=== PATIENT | female | born 2000 | race Caucasian/White ===

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

== ENCOUNTER 2025-04-19 11:50 | Emergency (ER) | payer OTHER, SELFPAY ==
--- NOTE | ~2025-04-19 | XR_ITS ---
EXAMINATION: XR ankle RT min 3V DATE: 04/19/2025 12:21 INDICATION: Right ankle inversion injury with pain TECHNIQUE: Anteroposterior, oblique, mortise, and lateral views of the right ankle were obtained. COMPARISON: None. FINDINGS: Alignment is normal. Coronally oriented linear lucency consistent with nondisplaced fracture extendin g across the posterior malleolus. No other fractures identified. There is however soft tissue swellin g overlying the lateral malleolus which suggests associated anterior talofibular ligament sprain. Clara nt spaces are well maintained. No ankle joint effusion. IMPRESSION: 1. Nondisplaced coronally oriented fracture across the posterior malleolus of the distal tibia. Reviewed, dictated and finalized at location A. IMPRESSION: 1. Nondisplaced coronally oriented fracture across the posterior malleolus of t he distal tibia.
--- NOTE | 2025-04-19 11:51 | ED.LOWEXIN ---
HPI - Extremity Injury (Lower) General Chief Complaint: Extremity Injury, Lower Stated Complaint: ankle injury Time Seen by Provider: 04/19/25 12:08 Source: patient, RN notes reviewed and old records reviewed Mode of arrival: ambulatory Limitations: no limitations History of Present Illness HPI Narrative: 24-year-old female presents to the [facility] with complaints right ankle pain. Injury in 1st rolling of the ankle occurred yesterday. States she has taken ibuprofen. Onset (ago): day(s) (1) Treatments prior to arrival: NSAIDS Related Data Home Medications ?Medication ?Instructions ?Recorded ?Confirmed ?Last Taken ?Type norgestimate 0.25 mg-ethinyl tablet 04/19/25 Unknown History estradiol 0.035 mg tablet (Estarylla) Allergies Allergy/AdvReac Type Severity Reaction Status Date / Time No Known Allergies Allergy Verified 04/19/25 12:08 Review of Systems Review of Systems: All systems reviewed & are unremarkable except as noted in HPI and below Constitutional: Constitutional: Reports no additional constitutional complaints ENT: Reports system reviewed and no additional complaints, except as documented Cardiovascular: Cardiovascular: Reports no additional cardiovascular complaints, Denies chest pain and Denies dyspnea Respiratory: Respiratory: Reports no additional respiratory complaints, Denies chest congestion, Denies cough and Denies dyspnea Musculoskeletal: Musculoskeletal: Reports as per HPI Integumentary/Breasts: Skin/Breast: Reports system reviewed and no additional complaints, except as docu [facility] Surgical History Surgical History (Updated 09/05/20 @ 12:31 by Yojana Henry PA-C) History of tonsillectomy Social History Social History (Updated 09/05/20 @ 12:31 by Yojana Henry PA-C) Smoking status: Never smoker Substance use: never Gender identity (if verbalized by the patient): Female Comments At the time of my signature, I reviewed and agree with the nursing past medical, surgical, social, and family history. There is no relevant family history pertinent to the patient complaint. Exam Const: General: cooperative, healthy appearing, comfortable, no acute distress, well developed, alert and well nourished Nutritional Appearance: well nourished Orientation/consciousness: patient oriented x3 Limitations: no limitations HENMT: Head: normal to inspection Eyes: General: appearance normal, both eyes and all related structures Alignment and Position: alignment normal Neck: Neck: normal visual inspection, full ROM, no lymphadenopathy and no meningeal signs Chest: Chest palpation & inspection: normal inspection of the chest Resp: Effort & Inspection: normal respiratory effort and able to speak in complete sentences Cardio: Rate: regular rate Skin: General skin exam: normal color and no rashes or lesions noted Neuro: General: patient oriented x3, moves all extremities and no meningeal signs Cognition (Neuro): normal cognition Speech: normal speech Extrem: General: normal to inspection, full ROM, capillary refill normal and Limp noted Right lower extremity: ankle Details: tenderness (Lateral posterior), swelling (Lateral), normal ROM and ecchymosis; no abrasions, no lacerations, no crepitus and no penetrating wound and foot Details: normal capillary refill, toes with normal ROM, vascular exam Details: dorsalis pedis pulse present and normal capillary refill and motor-sensory exam Details: light-touch normal; no abrasion and no laceration Psych: Appearance: grossly normal and well kempt Mental Status: mental status grossly normal Speech and movement: Normal speech and movement present and Clear speech present Affect: normal affect Attitude: cooperative Course Course Level of Care: Express Care Visit Vital Signs Vital signs: Vital Signs Temperature 98.3 F 04/19/25 12:01 Pulse Rate 95 04/19/25 12:01 Respiratory Rate 18 04/19/25 12:01 Blood Pressure 131/84 04/19/25 12:01 Pulse Oximetry 100 04/19/25 12:01 Oxygen Delivery Room Air 04/19/25 12:01 Temperature 98.3 F 04/19/25 12:01 Pulse Rate 95 04/19/25 12:01 Respiratory Rate 18 04/19/25 12:01 Blood Pressure 131/84 04/19/25 12:01 Pulse Oximetry 100 04/19/25 12:01 Oxygen Delivery Room Air 04/19/25 12:01 Reviewed MDM - Extremity Injury (Lower) MDM Narrative Medical decision making narrative: Patient sitting in exam room. Patient is nontoxic, vitals are stable. Patient presents with right ankle pain after injury yesterday. X-ray shows a posterior malleolus fracture. Referring to Ortho, requesting Dr. Sosa due to multiple family members that see him. Patient placed in splint. Sensation and neuro and capillary refill within normal limits post placed Patient reports that she has crutches at home, does not need any while in clinic Patient appropriate for outpatient treatment with close follow Discharge instructions reviewed with patient, as well as provided in writing per nursing staff. The instructions also include specific and strict return/GO TO THE ER as well as f/u information. All questions have been answered, and the patient deny any further questions with discharge and discharge plan. Some parts of this dictation were generated by voice recognition software and may contain typographical and/or grammatical inaccuracies. Differential Diagnosis Differential diagnosis: Likely ankle sprain and strain and ankle fracture Imaging Data Radiologist's impression: EXAMINATION: XR ankle RT min 3V DATE: 04/19/2025 12:21 INDICATION: Right ankle inversion injury with pain TECHNIQUE: Anteroposterior, oblique, mortise, and lateral views of the right ankle were obtained. COMPARISON: None. FINDINGS: Alignment is normal. Coronally oriented linear lucency consistent with nondisplaced fracture extending across the posterior malleolus. No other fractures identified. There is however soft tissue swelling overlying the lateral malleolus which suggests associated anterior talofibular ligament sprain. Joint spaces are well maintained. No ankle joint effusion. IMPRESSION: 1. Nondisplaced coronally oriented fracture across the posterior malleolus of the distal tibia. Critical Care Time Critical Care Time Critical Care Time: No Discharge Plan Discharge Clinical Impression: Closed fracture of posterior malleolus of right tibia Qualifiers: Encounter type: initial encounter Qualified Code(s): S82.391A - Other fracture of lower end of right tibia, initial encounter for closed fracture Patient Disposition: Home Condition: Stable Instructions: Antibiotic Form, Ankle Fracture (ED), Crutch Instructions (ED), Splint Care (ED) Additional Instructions: Your Xray did show a fracture that is nondisplaced to the posterior malleolus. Please leave splint on until you see orthopedic. Use crutches at all times. Is not recommended that you weightbear on that leg. For showering you can cover with a plastic bag. Try not to get the splint wet Ice should be applied to help reduce swelling. It can be used for 20 to 30 minutes, every 2-3 hours while awake. Do not apply ice directly to your skin. You can alternate ibuprofen 600mg and Tylenol 650mg every 4 hours as needed for pain Please schedule a follow-up visit with your personal physician for further evaluation and treatment within 2 weeks especially if symptoms persist. For new or worsening symptoms go directly to the emergency room Patient Language: Hebrew Prescriptions: No Action norgestimate-ethinyl estradiol [Estarylla] 0.25-0.035 mg tablet Follow-up/Referrals: Tye Wisdom MD [Physician] - (Posterior malleolus fracture) PHYSICIAN,CARDIOVASCULAR TECHNICIAN [Primary Care Provider] - Fady Sosa MD [Physician] - Stand Alone Forms: Work/School Release IP Time of Disposition: 13:05
--- OUTSIDE RECORDS SUMMARY | 2025-04-19 11:52 | XMS_ITS | Encounter Summary ---
Author Organization [facility] Address [address] [place] [address] Care Team Providers Care Lining Stitcher Name Role Phone Unavailable Primary Care Provider Unavailabl e Encounter Details Date Type Department Care Team (Late st Contact Info) Description 04/14/2025 Results Follow-Up [facility] [employer] [place] [address] [place] [address] Margarita Ocampo MD [address] [place] [address] TSH, LIPID PANEL, COMPREHENSIVE METABOLIC PANEL, CBC WITH DIFFERENTIAL Social History Tobacco Use Types Packs/Day Years Used Date Smoking Tobacco: Never Assessed Comments Unknown Sex and Gender Information Value Date Recorded Sex Assigned at Not on file Legal Sex Female 1:23 PM [employer] Gender Identity Not on file Sexual Orientation Not on file documented as of this encounter Plan of Treatment Not on file documented as of this encounter Visit Diagnoses Not on filedocumented in this encounter
--- OUTSIDE RECORDS SUMMARY | 2025-04-19 11:52 | XMS_ITS | Clinical Summary ---
Author Organization [facility] [employer] [place] Address [address] [address] Care Team Providers Care Spindle Plumber Name Role Phone Unavailable Primary Care Provider Unavailabl e Active Problems No known active problems Encounters Date Type Department Care Team Description 04/17/2025 External Device Data [facility] ABSTRACTION Provider, Abstract 04/16/2025 External Device Data [facility] ABSTRACTION Provider, Abstract 04/16/2025 External Device Data [facility] ABSTRACTION Provider, Abstract 04/15/2025 External Device Data [facility] ABSTRACTION Provider, Abstract 04/14/2025 Results Follow-Up [facility] [place] [email or web address] [place] [address] Margarita Ocampo MD TSH, LIPID PANEL, COMPREHENSIVE METABOLIC PANEL, CBC WITH DIFFERENTIAL 04/11/2025 8:00 AM CDT Office Visit [facility] [place] 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 Gender Identity Not on file Sexual Orientation Not on file Last Filed Vital Signs Vital Sign Reading Time Taken Comments Blood Pressure 126/82 04/11/2025 8:02 AM CDT Pulse - - Temperature - - Respiratory Rate - - Oxygen Saturation - - Inhaled Oxygen Concentration - - Weight 104.3 kg (230 lb) 04/11/2025 8:02 AM CDT Height 167.6 cm (5' 6 ) 04/11/2025 8:02 AM CDT Body Mass Index 37.12 04/11/2025 8:02 AM CDT Plan of Treatment Health Maintenance Due Date Last Done Comments CHLAMYDIA SCREENING (ANNUAL) 11-24 YEARS 2013 HPV VACCINES (1 - 3-dose series) 2017 DTAP/TDAP/TD VACCINES (1 - Tdap) 2021 HEPATITIS B VACCINES (1 of 3 - 19+ 3-dose series) 05/27 CERVICAL CANCER SCREENING 2023 HPV/Cotest (21-29) 2023 PAP SMEAR 2023 INFLUENZA VACCINE (#1) 2024 Procedures Procedure Name Priority Date/Time Associated Diagnosis Comments CBC WITH DIFFERENTIAL Routine 04/11/2025 7:49 AM CDT Screening for condition COMPREHENSIVE METABOLIC PANEL Routine 04/11/2025 7:49 AM CDT Screening for condition LIPID PANEL Routine 04/11/2025 7:49 AM CDT Screening for condition TSH Routine 04/11/2025 7:49 AM CDT Screening for condition from Last 3 Months Results * (ABNORMAL) CBC WITH DIFFERENTIAL (04/11/2025 7:49 AM CDT) WBC 7.5 3.8 - 10.8 Thousand/ uL [facility] [place] RBC 4.65 3.80 - 5.10 Million/u L [facility] [place] HEMOGLOBIN 14.0 11.7 - 15.5 g/dL [facility] [place] HEMATOCRIT 44.1 35.0 - 45.0 % [facility] [place] MCV 94.8 80.0 - 100.0 fL [facility] [place] MCH 30.1 27.0 - 33.0 pg [facility] MCHC 31.7(L) 32.0 - 36.0 g/dL [facility] Comment: For adults, a slight decrease in the calculated MCHC value (in the range of 30 to 32 g/dL) is most likely not clinically significant; however, it should be interpreted with caution in correlation with other red cell parameters and the patient's clinical condition. RDW 12.4 11.0 - 15.0 % [facility] PLATELETS 276 140 - 400 Thousand/ uL [facility] MPV 11.0 7.5 - 12.5 fL [facility] NEUTROPHIL ABSOLUTE 4,875 1,500 - 7,800 cells/uL [facility] LYMPHOCYTE ABSOLUTE 2,115 850 - 3,900 cells/uL [facility] MONOCYTE ABSOLUTE 390 200 - 950 cells/uL [facility] EOSINOPHIL ABSOLUTE 83 15 - 500 cells/uL [facility] BASOPHILS ABSOLUTE 38 0 - 200 cells/uL [facility] NEUTROPHIL 65 % [facility] LYMPHOCYTES 28.2 % [facility] MONOCYTE 5.2 % [facility] EOSINOPHILS 1.1 % [facility] BASOPHILS 0.5 % [facility] Comment: Test Performed at: [place] [address] [place] [address] [facility] Blood 04/11/2025 7:49 AM CDT 04/12/2025 12:48 AM CDT us Margarita Ocampo MD HEMATOLOGY ORDERABLES Final Re sult Performing Organization Address City[facility] Code Phone Number [facility] [phone] [place] [address] [place] [address] * TSH (04/11/2025 7:49 AM CDT) TSH 1.67 mIU/L [facility] Comment: Reference Range > or = 20 Years 0.40-4.50 Ranges First trimester 0.26-2.66 Second trimester 0.55-2.73 Third trimester 0.43-2.91 Test Performed at: [facility] [address] [place] [address] [facility] Blood 04/11/2025 7:49 AM CDT 04/12/2025 12:48 AM CDT Margarita Ocampo MD CHEMISTRY ORDERABLES Final Res ult Performing Organization Address City/[facility]/ZIP Code Phone Number [facility] [phone] [facility] [address] [address] [phone] * (ABNORMAL) LIPID PANEL (04/11/2025 7:49 AM CDT) CHOLESTEROL 160 <200 mg/dL [facility] HDL 43(L) > OR = 50 mg/dL [facility] [place] TRIGLYCERIDE 200(H) <150 mg/dL [facility] Comment: If a non-fasting specimen was collected, consider repeat triglyceride testing on a fasting specimen if clinically indicated. Mateusz et al. J. of Clin. Lipidol. 2015;9:129-169. LDL CALCULATED 87 mg/dL (calc) [place] [facility] Comment: Reference range: <100 Desirable range <100 mg/dL for primary prevention; <70 mg/dL for patients with CHD or diabetic patients with > or = 2 CHD risk factors. LDL-C is now calculated using the Jackelin calculation, which is a validated novel method providing better accuracy than the Friedewald equation in the estimation of LDL-C. Dheeraj WHITTEN et al. AYAKA. 2013;310(19): 0994-7320 (http://education.Texere/faq/HVJ205) CHOL/HDL RATIO 3.7 <5.0 (calc) [facility] NON-HDL CHOLESTEROL 117 <130 mg/dL (calc) [facility] Comment: For patients with diabetes plus 1 major ASCVD risk factor, treating to a non-HDL-C goal of <100 mg/dL (LDL-C of <70 mg/dL) is considered a therapeutic option. Test Performed at: [place] [address] [address] [address] [phone] [facility] Blood 04/11/2025 7:49 AM CDT 04/12/2025 12:48 AM CDT us Margarita Ocampo MD CHEMISTRY ORDERABLES Final Res ult [facility] [phone] [place] [address] [address] [phone] * COMPREHENSIVE METABOLIC PANEL (04/11/2025 7:49 AM CDT) GLUCOSE 87 65 - 99 mg/dL [facility] Comment: Fasting reference interval BUN 9 7 - 25 mg/dL [facility] CREATININE 0.85 0.50 - 0.96 mg/dL [facility] GFR 99 > OR = 60 mL/min/1. 73m2 [facility] BUN/CREAT RATIO SEE NOTE: 6 - 22 (calc) [facility] Comment: Not Reported: BUN and Creatinine are within reference range. SODIUM 137 135 - 146 mmol/L [facility] POTASSIUM 4.1 3.5 - 5.3 mmol/L [facility] CHLORIDE 106 98 - 110 mmol/L [facility] CO2 21 20 - 32 mmol/L [place] [facility] CALCIUM 8.9 8.6 - 10.2 mg/dL [facility] TOTAL PROTEIN 6.4 6.1 - 8.1 g/dL [place] [facility] ALBUMIN 4.2 3.6 - 5.1 g/dL [facility] GLOBULIN 2.2 1.9 - 3.7 g/dL (calc) [facility] ALBUMIN/GLOBULIN RATIO 1.9 1.0 - 2.5 (calc) [facility] BILIRUBIN TOTAL 0.4 0.2 - 1.2 mg/dL [facility] ALKALINE PHOSPHATASE 41 31 - 125 U/L [facility] AST 13 10 - 30 U/L [facility] ALT 17 6 - 29 U/L [facility] Comment: Test Performed at: [place] [address] [address] [address] [phone] [facility] Blood 04/11/2025 7:49 AM CDT 04/12/2025 12:48 AM CDT us Margarita Ocampo MD CHEMISTRY ORDERABLES Final Res ult [facility] [phone] [place] [address] [address] [place] [phone] from Last 3 Months Insurance ALLEGIANCE OPEN ACCESS
--- OUTSIDE RECORDS SUMMARY | 2025-04-19 11:52 | XMS_ITS | Clinical Summary ---
Author Organization [facility] [employer] Address [address] [place] [address] Care Team Providers Care Dewer Name Role Phone Rosemary Martinez PA-C Primary Care Provider [phone] Source Comments [facility],non-owned Affiliates and Associated Physician Practices is amultiple site organization consisting of ambulatory clinics and hospital sitesin [place], [place], [place] and [place]. This disclosure is being madepursuant to the Care Everywhere program and may not contain all information available regarding this patient. Last updated 18.[facility] Allergies No known active allergies Medications * Be aware that medications may not be up to date on this document. Alwaysverify current medications with the patient. norgestimate-eth inyl estradiol (ORTHO-CYCLEN; MONONESSA; PREVIFEM; SPRINTEC) 0.25-35 MG-MCG tablet Take 1 tablet by mouth once daily 09/10/2020 Active Active Problems No known active problems Immunizations Immunization Administration Dates Next Due INFLUENZA VACCINE, QUADR. 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 Gender Identity Not on file Sexual Orientation Not on file Last Filed Vital Signs Vital Sign Reading Time Taken Comments Blood Pressure 112/80 11/16/2021 5:36 PM SIZE PAINTER Pulse 80 11/16/2021 5:36 PM SIZE PAINTER Temperature 36.7 C (98 F) 11/16/2021 5:36 PM SIZE PAINTER Respiratory Rate 16 11/16/2021 5:36 PM SIZE PAINTER Oxygen Saturation 96% 11/16/2021 5:36 PM SIZE PAINTER Inhaled Oxygen Concentration - - Weight 81.6 kg (180 lb) 11/16/2021 5:36 PM SIZE PAINTER Height 170.2 cm (5' 7 ) 11/16/2021 5:36 PM SIZE PAINTER Body Mass Index 28.19 11/16/2021 5:36 PM SIZE PAINTER Plan of Treatment Health Maintenance Due Date Last Done Comments HIV SCREENING 2017 HPV VACCINE (1 - 3-dose series) 2017 CHLAMYDIA/GONORRHEA SCREENING 2018 MENINGOCOCCAL (Group B) VACCINE SHARED DECISION-MAKING (1 of 2 - Standard) 2018 HEPATITIS C SCREENING 06/07/2020 DTAP/TDAP/TD VACCINES (1 - Tdap) 2021 HEPATITIS B VACCINE (1 of 3 - 19+ 3-dose series) 2021 COVID-19 VACCINE (1 - season) 2024 DEPRESSION SCREENING 11/27/2024 INFLUENZA VACCINE (Season Ended) 2025 08/14/2021, 08/10/2020, 09/04/2019, Additional history exists ZOSTER VACCINE (1 of 2) 2052 HIB VACCINE Aged Out No longer eligi ble based on patient's age to complete this topic MENINGOCOCCAL GROUPS A/C/Y/W VACCINE Aged Out No longer eligible based on patient's age to complete this topic PNEUMOCOCCAL VACCINE Aged Out No long er eligible based on patient's age to complete this topic [facility] [address] [facility] Care Teams Dewer Relationship Specialty Start Date End Date Rosemary Martinez PA-C [address] [place] [address] PCP - General Physician Production Controller 9/18/21
[2025-04-19 12:01] VITALS: BP 131/84; PULSE 95; RESP 18; TEMP 36.8; O2SAT 100
== END 2025-04-19 13:20 | disposition home or self-care (01) ==
PROVIDERS: Emergency Provider Nurse Practitioner; Referring Provider Emergency Medicine
DX: S82.391A Other fracture of lower end of right tibia, initial encounter for closed fracture (principal); X50.9XXA Other and unspecified overexertion or strenuous movements or postures, initial encounter
CPT/HCPCS: 29515; 73610; 99214; G0463